=== PATIENT | male | born 1985 | race Caucasian/White ===

== ENCOUNTER 2022-11-28 16:55 | Emergency (ER) | payer OTHER, SELFPAY ==
[2022-11-28 16:59] VITALS: BP 157/88; PULSE 96; RESP 16; TEMP 36.9; O2SAT 98; BMI 29.4
[2022-11-28] MEDS: KETOROLAC 30 MG/ML VIAL 15 MG IM (18:42)
--- NOTE | 2022-11-28 18:59 | ED_ITS ---
HPI - Extremity Problem <Neftali Lozoya PA-C - Last Filed: 11/28/22 19:05> General Chief complaint: Extremity Problem,Nontraumatic Stated complaint: R leg numbing, Severe back pain Time Seen by Provider: 11/28/22 17:11 Source: patient Mode of arrival: Ambulatory History of Present Illness HPI Narrative: This is a 37-year-old male presents to the emergency department complaining of 2 days back pain with radiation down his right lower extremity. He states the pain goes down his right lower extremity and wraps around to the front of the kneecap and down the front of the calf. Denies any significant numbness but d oes describe a sense of tingling. Patient states that he is not tried any medications or physical therapy for this. Denies any urinary or bowel incontinence, weakness, or any other concerning signs or symptoms. Related Data Previous Rx's Medication Instructions Recorded cyclobenzaprine 10 mg tablet 10 mg PO TID PRN muscle spasm #20 11/28/22 tabs Allergies Allergy/AdvReac Type Severity Reaction Status Date / Time No Known Drug Allergies Allergy Verified 11/28/22 16:59 Review of Systems <Neftali Lozoya PA-C - Last Filed: 11/28/22 19:05> Review of Systems Narrative: GENERAL: Denies chills, fatigue, malaise, fever, sweats. HEENT: Denies sinus pain, ear pain, sore throat, difficulty swallowing, dizziness. RESPIRATORY: Denies dyspnea, cough, wheezing, hemoptysis, sputum. CARDIOVASCULAR: Denies chest pain, palpitations, orthopnea, edema, GASTROINTESTINAL: Denies nausea, vomiting, abdominal pain, diarrhea, constipation, melena. : Denies dysuria, frequency, incontinence, hematuria, urinary retention. MUSCULOSKELETAL: Right lower extremity pain SKIN: Denies rash, skin lesions, or other NEUROLOGIC: Denies weakness, headache, numbness, change in speech, confusion, seizures, incoordination. PSYCHIATRIC: No concerning psychosocial issues. 12 point review of systems is negative except for those stated above Patient History <Neftali Lozoya PA-C - Last Filed: 11/28/22 19:05> Medical History Muscle strain of right forearm Social History Smoking Status: Current every day smoker Smoking Status: Current every day smoker Substance Use Type: marijuana Exam <CHERYL Lake Last Filed: 11/28/22 19:05> Narrative Exam Narrative: GENERAL: Well-developed patient, in mild distress. HEAD: Atraumatic. Normocephalic. EYES: Pupils equal round and reactive. Extraocular motions intact. No scleral i cterus. No injection or drainage. ENT: Nose without bleeding, purulent drainage. Throat without erythema, tonsillar hypertrophy or exudate. Airway patent. NECK: Trachea midline. Non tender EXTREMITIES: No edema or joint tenderness. BACK: Nontender without deformity or crepitance. No flank tenderness. NEURO: AOx3. SKIN: No rash or erythema of visible areas Initial Vital Signs Initial Vital Signs: Vital Signs Temperature 98.4 F 11/28/22 16:59 Pulse Rate 96 H 11/28/22 16:59 Respiratory Rate 16 11/28/22 16:59 Blood Pressure 157/88 H 11/28/22 16:59 Pulse Oximetry 98 11/28/22 16:59 Oxygen Delivery Method 11/28/22 16:59 <Chanelle Augustine DO - Last Filed: 11/29/22 08:21> Initial Vital Signs Initial Vital Signs: Vital Signs Temperature 98.4 F 11/28/22 16:59 Pulse Rate 96 H 11/28/22 16:59 Respiratory Rate 16 11/28/22 16:59 Blood Pressure 157/88 H 11/28/22 16:59 Pulse Oximetry 98 11/28/22 16:59 Oxygen Delivery Method 11/28/22 16:59 Course <CHERYL Lake Last Filed: 11/28/22 19:05> Orders Ordered: Discontinued Medications Ketorolac Tromethamine (Ketorolac 30 Mg/Ml Vial) 15 mg IM NOW ONE Stop: 11/28/22 18:21 Last Admin: 11/28/22 18:42 Dose: 15 mg Documented By: CATARINA Vital Signs Vital signs: Vital Signs - 8 hr 11/28/22 16:59 Temperature 98.4 F Pulse Rate 96 H Respiratory Rate 16 Blood Pressure 157/88 H Pulse Oximetry 98 Oxygen Delivery Method Room Air <Chanelle Augustine DO - Last Filed: 11/29/22 08:21> Orders Ordered: Discontinued Medications Ketorolac Tromethamine (Ketorolac 30 Mg/Ml Vial) 15 mg IM NOW ONE Stop: 11/28/22 18:21 Last Admin: 11/28/22 18:42 Dose: 15 mg Documented By: CATARINA Vital Signs Vital signs: Vital Signs - 8 hr 11/28/22 16:59 Temperature 98.4 F Pulse Rate 96 H Respiratory Rate 16 Blood Pressure 157/88 H Pulse Oximetry 98 Oxygen Delivery Method Room Air MDM - Extremity (Nontraumatic) <Neftali Lozoya PA-C - Last Filed: 11/28/22 19:05> MDM Narrative Medical decision making narrative: CC: Right lower extremity pain Complicating co-morbidities: Chronic back pain Data collected from: Previous records Medical records reviewed: Has not been here for similar complaints Differential considered, but not limited to: Sciatica, DVT, muscular strain, fracture Exam documented above, pertinent findings include: Very mild pain with palpation Lab Test results independently reviewed as above. Pertinent findings: None Independently reviewed EKG as above: None obtained Imaging studies independently reviewed: None obtained Scores Used: None MIPS Elements: None Consultations: None Treatments: 15 mg IM Toradol Re-evaluations: Patient reports mild pain relief Discussion: Discussed diagnosis of sciatica and patient was comfortable di scharging home. Diagnosis: Sciatica Disposition: see below, along with detailed discharge instructions that have been reviewed with patient as well as indications for ED re-evaluation and additional outpatient follow up Discharge Plan Departure Patient Disposition: Home Clinical Impression: Sciatica Instructions: DI for Back Pain With Sciatica Activity Restrictions/Additional Instructions: Thank you for coming to the [facility] Emergency Department today. As discussed I suspect you something called sciatica, this is usually due to a compression of the nerve. The compression caused by increasing inflammation. We gave you an anti-inflammatory shot. We will also prescribed muscle relaxants to relax the muscles that this may relieve the pain as well. Please follow up with the primary care provider for long-term management and relief of this suspected sciatica. I hope you feel better soon. Prescriptions: New cyclobenzaprine 10 mg tablet 10 mg PO TID PRN (Reason: muscle spasm) Qty: 20 0RF Referrals: Miscellaneous,Doctor, [Primary Care Provider] - Stand Alone Forms: Patient Portal/API <Chanelle Augustine DO - Last Filed: 11/29/22 08:21> Cosign ED Attending Cosignature Attestation: I was immediately available in the department for consultation. Documentation has been reviewed.
[2022-11-28 19:09] VITALS: BP 140/77; PULSE 73; RESP 16; O2SAT 98
== END 2022-11-28 19:11 | disposition home or self-care (01) ==
PROVIDERS: Emergency Provider Physician Assistant Medical
DX: M54.31 Sciatica, right side (principal)
CPT/HCPCS: 96372; 99283; J1885

== ENCOUNTER → 2022-12-05 09:01 | Outpatient (CLI) | payer OTHER, SELFPAY ==
--- NOTE | 2022-12-05 | DI.RAD.S_ITS ---
PROCEDURE: XR LUMBAR SPINE 2-3V INDICATIONS: BACK PAIN TECHNIQUE: 3 views of the lumbar spine were acquired. COMPARISON: None. FINDINGS: Bones: Five [id number] vertebrae are present. Mild rotation of L1 and L2 and slight rightward curvature at the L2-3 level. Grade 1 retrolisthesis L1 on two. Mild disc height loss and endplate spurring at this level. Bone alignment and disc spacing are otherwise normal. No vertebral body compression fractures. No suspicious bony lesions. Soft tissues: Overlying bowel gas pattern is normal. No suspicious soft tissue calcifications. IMPRESSION: 1. Mild disc, endplate degeneration, and spondylolisthesis at L1-2. 2. Otherwise fairly normal lumbar spine. Dictated by: Yuliana Boland M.D. on 12/05/2022 at 8:44 Approved by: Yuliana Boland M.D. on 12/05/2022 at 8:49
== END ==
PROVIDERS: Referring Provider Chiropractor; Visit Provider Chiropractor
DX: M51.26 Other intervertebral disc displacement, lumbar region (principal); M43.16 Spondylolisthesis, lumbar region
CPT/HCPCS: 72100

== ENCOUNTER → 2025-05-23 07:33 | Outpatient (CLI) | payer OTHER, SELFPAY ==
--- NOTE | 2025-05-23 07:37 | DI.RAD.S_ITS ---
PROCEDURE: XR LUMBAR SPINE 2-3V INDICATIONS: Low back pain, unspecified TECHNIQUE: 3 views of the lumbar spine were acquired. COMPARISON: [facility], CR, XR LUMBAR SPINE 2-3V, 12/05/2022, 9:03. FINDINGS: Bones: 5 [id number] vertebrae are present. Minimal dextroscoliosis has its apex about the L2-L3 interspace. Retrolisthesis of L1 on L2 measures 5 mm. There is otherwise normal bony alignment. Mild multilevel anterior osteophytosis. No vertebral body compression fractures. No suspicious bony lesions. Soft tissues: Overlying bowel gas pattern is normal. No suspicious soft tissue calcifications. IMPRESSION: Mild degenerative change of the lumbar spine including retrolisthesis of L1 on L2 without evidence of acute bony abnormality. Dictated by: Jaime Fuentes M.D. on 05/23/2025 at 23:13 Approved by: Jaime Fuentes M.D. on 05/23/2025 at 23:23
== END ==
LOC: RAD 07:35
PROVIDERS: PCP Family Medicine; Referring Provider Family Medicine; Visit Provider Family Medicine
DX: M43.16 Spondylolisthesis, lumbar region (principal); M54.50 Low back pain, unspecified
CPT/HCPCS: 72100

== ENCOUNTER → 2025-05-24 07:36 | Outpatient (CLI) | payer OTHER, SELFPAY ==
--- NOTE | 2025-05-24 07:39 | DI.RAD.S_ITS ---
PROCEDURE: XR KNEE RT 3V INDICATIONS: CHRONIC RT KNEE PAIN TECHNIQUE: 3 views of the knee were acquired. COMPARISON: None. FINDINGS: Bones: There are no osseous abnormalities. Joints: The tibialfemoral and patellofemoral joints are normal in width and alignment without arthritic change. . There are no effusions. Soft tissues: Normal IMPRESSION: Normal knee. Dictated by: Hernan Silverman M.D. on 05/25/2025 at 11:45 Approved by: Hernan Silverman M.D. on 05/25/2025 at 11:45
== END ==
PROVIDERS: PCP Family Medicine; Referring Provider Family Medicine; Visit Provider Family Medicine
DX: M25.561 Pain in right knee (principal); G89.29 Other chronic pain
CPT/HCPCS: 73562

== ENCOUNTER → 2025-07-30 14:51 | Outpatient (CLI) | payer OTHER, SELFPAY | PROVIDERS: PCP Family Medicine; Referring Provider Family Medicine; Visit Provider Family Medicine | DX: R19.7 Diarrhea, unspecified (principal) | CPT/HCPCS: 87329 ==

== ENCOUNTER 2025-09-19 08:15 | Outpatient (RCR) | payer OTHER, SELFPAY ==
--- NOTE | 2025-08-15 14:31 | PT.OPPOC ---
Physical, Occupational & Speech Therapy At [facility] Current Diagnoses Other chronic pain (08/15/25) Pain in right knee (08/15/25) Low back pain, unspecified (08/15/25) Visit Care Team Role Provider Type Shirley Moran MD Attending Provider Non-Staff Family Provider Primary Care Provider Referring Provider Specialty: Family Practice Address: [address] [place] [address], [facility] Email: Plan Of Care PT OP: Lower Back/Lower Extremity Start: 08/15/25 13:01 Freq: Status: Active Protocol: Document 08/15/25 13:02 HUY (Rec: 08/15/25 14:30 HUY [id number]) Out-Patient Physical Therapy Visit Information Visit Information Visit Type Initial Evaluation Visit Start Time 13:00 Visit Stop Time 13:45 Visit Number 1 Number of STOCK LETTERER Visits 0 Progress Note Due 09/14/25 OP-PT Subjective Patient Comments Patient Comments History of current diagnosis: Patient reports low back pain that started over two years ago. He reports he went to PT for about a year ago and had some improvement in his low back pain but eventually the pain came back. 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 Physical activities/ hobbies: Working on cars. Was walking 2 miles per day then fell off. Pain location: L low back, R medial back Pain description: stiff, burning when bending forward, no numbness or tingling Pain 0-10/10 (current): 2/10 Pain 0-10/10 (worst): 5/10 Pain 0-10/10 (best): 0/10 Aggravating: Bending over, working bent over, yard work Alleviating: Low back massage Function prior to injury: Independent with all ADLs Function current: Independent with all ADLs - limited with bending down, lifting at work, yard work Patient goals: Improve pain levels, and ROM Patient Questionnaires Oswestry Low Back Index Oswestry Score 38 Oswestry Impairment 20 to 39% Impaired (Score 20-39) Palpation Assessment Location Thoracic/ lumbar region Palpation Findings Soft Tissue Tightness,Tenderness Palpation Details TTP R thoracic paraspinals Lumbar Spine Range of Motion Lumbar Spine Active Comments Movement screen: Flexion: WFL Extension: WFL R rotation: WFL, symptom reproduction L rotation: WFL R side bending: WFL, symptom reproduction L side bending: WFL, symptom reproduction Squat: WFL Hinge: Increased lumbar flexion, reduced posterior hip translation, symptom reproduction Hip Goniometric Range of Motion Hip Measured in Degrees Right Hip ROM WFL Yes Flexion w/Knee 130 Flexed Internal Rotation 30 External Rotation 50 Comments Passive range Left Hip ROM WFL Yes Flexion w/Knee 130 Flexed Internal Rotation 30 External Rotation 50 Comments Passive range Physical Therapy Assessment Goals Three Impairment Pain intensity Short Term Goal (STG Patient will report a reduction in pain at worst to a 3 ) /10 in order to better function at work and with yard work. STG Duration 3 weeks Care Home Goal (LTG) Patient will report a reduction in pain at worst to a 1 /10 in order to better function at work and with yard work. LTG Duration 6 weeks Two Impairment General function/ disability Short Term Goal (STG Patient will demonstrate an reduction in modified ) Oswestry disability score to 32 in order to show an increase in self-perceived function. STG Duration 3 weeks Care Home Goal (LTG) Patient will demonstrate an reduction in modified Oswestry disability score to 26 in order to show an increase in self-perceived function. LTG Duration 6 weeks One Impairment Movement coordination/ lumbar load tolerance Short Term Goal (STG Patient will hinge to full depth with proper mechanics ) and no increase in pain levels. STG Duration 3 weeks Care Home Goal (LTG) Patient will hinge with proper mechanics, no increase in pain levels with 30# in order to better function with lifting at work. LTG Duration 6 weeks Assessment Summary Assessment Patient presenting to PT with complaints of chronic mid -low back pain. Functional deficits include bending down, lifting, and yard work. Objective investigation revealed pain reproduction with lumbar R side bending and rotation, movement coordination deficits with hip hinge (see movement screen notes above), and tenderness to palpation of R paraspinals in thoracic region. Presentation is consistent with chronic non-movement specific mechanical low back pain and patient will benefit from PT to address deficits and return to prior level of function. Physical Therapy Plan Frequency and Duration Frequency of 2x/Week Treatment Duration of 12 treatment (weeks) Plan of Care Start 08/15/25 Date Plan of Care End 11/13/25 Date Next Visit Focus/Plan Next Note Type Treatment Note Next Visit Plan Initiate treatment with focus on lumbar mobility, progressive strengthening, and movement coordination of lumbo-pelvic region particularly with bending down. Plan of Care Dates Plan of Care Start Date 08/15/25 Plan of Care End Date 11/13/25 Electronically Signed by: Yulissa Doan, PT 08/15/25 1017 If you are in agreement with this Plan of Care, please return a signed and dated copy. I have reviewed this Plan of Care and certify that the skilled therapy services above are required to meet the patient?s needs. Physician Signature Date Printed Name and Credentials Clinical Instructor Signature Printed Name and Credentials
--- NOTE | 2025-08-17 15:30 | PT.OTN ---
Current Diagnoses Other chronic pain (08/17/25) Pain in right knee (08/17/25) Low back pain, unspecified (08/17/25) Physical Therapy Treatment Note PT OP: Lower Back/Lower Extremity Start: 08/15/25 13:01 Freq: Status: Active Protocol: Document 08/17/25 13:47 JZ (Rec: 08/17/25 15:30 JZ [id number]) Out-Patient Physical Therapy Visit Information Visit Information Visit Type Treatment Note Visit Start Time 13:45 Visit Stop Time 14:30 Visit Number 2 Number of NET PROGRAMMER ANALYST Visits 0 Progress Note Due 09/14/25 OP-PT Subjective Patient Comments Patient Comments Patient reports his back has been feeling good. He did his exercises at home yesterday with no pain. Therapeutic Exercises Prone Exercises Thread the needle Prone Exercise Name With upward thoracic rotation Reps/Minutes x20 each side Cat cow Reps/Minutes x30 Comments cues for full flexion ROM Sitting Exercises Seated hip hinge Resistance 20# Reps/Minutes 3x15 Standing Exercises Rotational chop Resistance 20# Reps/Minutes 3x10 each side Standing hip hinge Resistance 20# Reps/Minutes 3x10 Comments Chair cue against posterior knees for hip hinge Physical Therapy Assessment Goals Three Impairment Pain intensity Short Term Goal (STG Patient will report a reduction in pain at worst to a 3 ) /10 in order to better function at work and with yard work. STG Duration 3 weeks [facility] Goal (LTG) Patient will report a reduction in pain at worst to a 1 /10 in order to better function at work and with yard work. LTG Duration 6 weeks Two Impairment General function/ disability Short Term Goal (STG Patient will demonstrate an reduction in modified ) Oswestry disability score to 32 in order to show an increase in self-perceived function. STG Duration 3 weeks [facility] Goal (LTG) Patient will demonstrate an reduction in modified Oswestry disability score to 26 in order to show an increase in self-perceived function. LTG Duration 6 weeks One Impairment Movement coordination/ lumbar load tolerance Short Term Goal (STG Patient will hinge to full depth with proper mechanics ) and no increase in pain levels. STG Duration 3 weeks Hand Model Goal (LTG) Patient will hinge with proper mechanics, no increase in pain levels with 30# in order to better function with lifting at work. LTG Duration 6 weeks Assessment Summary Assessment Treatment focused on initiating spine strengthening and mobility. Patient tolerated treatment well with no increases in pain levels and demonstrated improvement in lumbo-pelvic mechanics with hip hinge. Plan next session to follow up on home exercises and continue with plan of care. Physical Therapy Plan Frequency and Duration Frequency of 2x/Week Treatment Duration of 12 treatment (weeks) Plan of Care Start 08/15/25 Date Plan of Care End 11/13/25 Date Next Visit Focus/Plan Next Note Type Treatment Note Next Visit Plan Continue with plan of care focused on lumbar mobility, lumbo-pelvic neuromuscular control, and strengthening. Add hip thrusters, side hip bridge.
--- NOTE | 2025-08-22 14:16 | PT.OTN ---
Current Diagnoses Other chronic pain (08/22/25) Pain in right knee (08/22/25) Low back pain, unspecified (08/22/25) Physical Therapy Treatment Note PT OP: Lower Back/Lower Extremity Start: 08/15/25 13:01 Freq: Status: Active Protocol: Document 08/22/25 13:06 HUY (Rec: 08/22/25 14:15 HUY [id number]) Out-Patient Physical Therapy Visit Information Visit Information Visit Type Treatment Note Visit Start Time 13:05 Visit Stop Time 14:50 Visit Number 3 Number of ADMINISTRATIVE OFFICER Visits 0 Progress Note Due 09/14/25 OP-PT Subjective Patient Comments Patient Comments Patient reports his back has been a little sore but overall is doing well. Therapeutic Exercises Prone Exercises Thread the needle Prone Exercise Name With upward thoracic rotation Reps/Minutes x20 each side Cat cow Reps/Minutes x30 Comments cues for full flexion ROM Sitting Exercises Seated hip hinge Resistance 20# Reps/Minutes 3x15 Standing Exercises SLDL Resistance 10# Reps/Minutes 2x10 each side Rotational chop Resistance 20# Reps/Minutes 3x10 each side Standing hip hinge Resistance 20# Reps/Minutes 3x10 Comments Chair cue against posterior knees for hip hinge Physical Therapy Assessment Goals Three Impairment Pain intensity Short Term Goal (STG Patient will report a reduction in pain at worst to a 3 ) /10 in order to better function at work and with yard work. STG Duration 3 weeks Armature Winder Repair Helper Goal (LTG) Patient will report a reduction in pain at worst to a 1 /10 in order to better function at work and with yard work. LTG Duration 6 weeks Two Impairment General function/ disability Short Term Goal (STG Patient will demonstrate an reduction in modified ) Oswestry disability score to 32 in order to show an increase in self-perceived function. STG Duration 3 weeks Armature Winder Repair Helper Goal (LTG) Patient will demonstrate an reduction in modified Oswestry disability score to 26 in order to show an increase in self-perceived function. LTG Duration 6 weeks One Impairment Movement coordination/ lumbar load tolerance Short Term Goal (STG Patient will hinge to full depth with proper mechanics ) and no increase in pain levels. STG Duration 3 weeks Armature Winder Repair Helper Goal (LTG) Patient will hinge with proper mechanics, no increase in pain levels with 30# in order to better function with lifting at work. LTG Duration 6 weeks Assessment Summary Assessment Treatment focused on progressing strengthening exercises. Patient tolerated treatment well with no increases in pain levels. Plan next session to follow up on home exercises and add hip thrusters and side hip bridges to program. Physical Therapy Plan Frequency and Duration Frequency of 2x/Week Treatment Duration of 12 treatment (weeks) Plan of Care Start 08/15/25 Date Plan of Care End 11/13/25 Date Next Visit Focus/Plan Next Note Type Treatment Note Next Visit Plan Continue with plan of care focused on lumbar mobility, lumbo-pelvic neuromuscular control, and strengthening. Add hip thrusters, side hip bridge.
--- NOTE | 2025-08-24 14:15 | PT.OTN ---
Current Diagnoses Other chronic pain (08/24/25) Pain in right knee (08/24/25) Low back pain, unspecified (08/24/25) Physical Therapy Treatment Note PT OP: Lower Back/Lower Extremity Start: 08/15/25 13:01 Freq: Status: Active Protocol: Document 08/24/25 13:04 HUY (Rec: 08/24/25 14:15 HUY [id number]) Out-Patient Physical Therapy Visit Information Visit Information Visit Type Treatment Note Visit Start Time 13:05 Visit Stop Time 14:50 Visit Number 4 Number of WIND TURBINE BLADE REPAIR TECHNICIAN Visits 0 Progress Note Due 09/14/25 OP-PT Subjective Patient Comments Patient Comments Patient reports he had a good deal of muscle soreness after last session. Therapeutic Exercises Prone Exercises Thread the needle Prone Exercise Name With upward thoracic rotation Reps/Minutes x20 each side Cat cow Reps/Minutes x20 each direction Comments cues for full flexion ROM Sidelying Exercises Side hip bridge Reps/Minutes x10 each side Sitting Exercises Seated piriformis/ glute stretch Reps/Minutes 3x30 each side Seated hip hinge Resistance 20# Standing Exercises SLDL Reps/Minutes 2x10 Rotational chop Resistance 20# Reps/Minutes 3x10 each side Standing hip hinge Resistance 20# Reps/Minutes 3x10 Comments Chair cue against posterior knees for hip hinge Physical Therapy Assessment Goals Three Impairment Pain intensity Short Term Goal (STG Patient will report a reduction in pain at worst to a 3 ) /10 in order to better function at work and with yard work. STG Duration 3 weeks Carpet Tile Layer Goal (LTG) Patient will report a reduction in pain at worst to a 1 /10 in order to better function at work and with yard work. LTG Duration 6 weeks Two Impairment General function/ disability Short Term Goal (STG Patient will demonstrate an reduction in modified ) Oswestry disability score to 32 in order to show an increase in self-perceived function. STG Duration 3 weeks [facility] Goal (LTG) Patient will demonstrate an reduction in modified Oswestry disability score to 26 in order to show an increase in self-perceived function. LTG Duration 6 weeks One Impairment Movement coordination/ lumbar load tolerance Short Term Goal (STG Patient will hinge to full depth with proper mechanics ) and no increase in pain levels. STG Duration 3 weeks Carpet Tile Layer Goal (LTG) Patient will hinge with proper mechanics, no increase in pain levels with 30# in order to better function with lifting at work. LTG Duration 6 weeks Assessment Summary Assessment Treatment focused on continued posterior chain strengthening and mobility. Patient tolerated treatment well with no increases in pain levels. Plan next session to follow up on home exercises and continue with plan of care. Physical Therapy Plan Frequency and Duration Frequency of 2x/Week Treatment Duration of 12 treatment (weeks) Plan of Care Start 08/15/25 Date Plan of Care End 11/13/25 Date Next Visit Focus/Plan Next Note Type Treatment Note Next Visit Plan Continue with plan of care focused on lumbar mobility, lumbo-pelvic neuromuscular control, and strengthening. Add hip thrusters, side hip bridge.
--- NOTE | 2025-08-29 09:44 | PT.OTN ---
Current Diagnoses Other chronic pain (08/29/25) Pain in right knee (08/29/25) Low back pain, unspecified (08/29/25) Physical Therapy Treatment Note PT OP: Lower Back/Lower Extremity Start: 08/15/25 13:01 Freq: Status: Active Protocol: Document 08/29/25 09:06 SP (Rec: 08/29/25 10:03 SP [id number]) Out-Patient Physical Therapy Visit Information Visit Information Visit Type Treatment Note Visit Start Time 09:06 Visit Stop Time 09:44 Visit Number 5 Number of SHANK TURNER Visits 1 Progress Note Due 09/14/25 OP-PT Subjective Patient Comments Patient Comments Pt reports has been busy with family in town, not as compliant with HEP. 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 Therapeutic Exercises Sitting Exercises reclined oblique rotation med bal Sitting Exercise added to HEP with HO Name Resistance 5.5 lb then 10lb Reps/Minutes 10 reps x2 Comments cued spinal alignment, core engaged, painfree range Standing Exercises Standing SB weighted Standing Exercise added to HEP with HO Name Side bilateral Resistance 10# DB Reps/Minutes 10 x2 each side HS stretch Standing Exercise 1. bottoms up vs 2. hip hinge leg propped up Name Side bilateral Reps/Minutes 20-3- sec Comments cued straight back hip hinge with TA engaged needed support back SLDL Standing Exercise SL RDL Name Side bilateral Resistance 10# held BUEs in front Reps/Minutes 3x10 alternating sets Comments cued 1 leg lift posterior level shlds with UEs trunk flexion, good TA- nopn Rotational chop Side bilateral Resistance 20# xcable last tx, TB #5 dark green for home carryover Reps/Minutes 15 x1 set, 10 x2 sets each side Comments cues slight knee/hip flexion during rotation to outside thigh Standing hip hinge Resistance 20# Equipment Used body solid bench behind knees Reps/Minutes 3x10 Comments CUes fror TA, back alignment hip hinge Therapeutic Activity 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 Verbalized understanding. ALso seated under car and looking up maybe find a supported seat like fabric stadium chair that can give him support sitting during activity accomplishing and dong few HEP after to support mobility and lessen soreness. Physical Therapy Assessment Goals Three Impairment Pain intensity Short Term Goal (STG Patient will report a reduction in pain at worst to a 3 ) /10 in order to better function at work and with yard work. STG Duration 3 weeks Usp Goal (LTG) Patient will report a reduction in pain at worst to a 1 /10 in order to better function at work and with yard work. LTG Duration 6 weeks Two Impairment General function/ disability Short Term Goal (STG Patient will demonstrate an reduction in modified ) Oswestry disability score to 32 in order to show an increase in self-perceived function. STG Duration 3 weeks Satellite Manager Goal (LTG) Patient will demonstrate an reduction in modified Oswestry disability score to 26 in order to show an increase in self-perceived function. LTG Duration 6 weeks One Impairment Movement coordination/ lumbar load tolerance Short Term Goal (STG Patient will hinge to full depth with proper mechanics ) and no increase in pain levels. STG Duration 3 weeks Satellite Manager Goal (LTG) Patient will hinge with proper mechanics, no increase in pain levels with 30# in order to better function with lifting at work. LTG Duration 6 weeks Assessment Summary Assessment Pt improved core and LE strengthening during ther ex today. Incorporated reclined seated and standing SB resisted strengthening then complimenting HS stretching in standing to support flexibility to low back. 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 PRovided high level #6 band to incorporate in HEP chops carry over home vs plates in PT. Pt reports no pain and good core/back feeling. 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 recheck added core rotations with med ball and standing SB. POC: Continue with plan of care focused on lumbar mobility, lumbo-pelvic neuromuscular control, and strengthening. Add hip thrusters, side hip bridge.
--- NOTE | 2025-09-06 10:19 | PT.OTN ---
Current Diagnoses Other chronic pain (09/06/25) Pain in right knee (09/06/25) Low back pain, unspecified (09/06/25) Physical Therapy Treatment Note PT OP: Lower Back/Lower Extremity Start: 08/15/25 13:01 Freq: Status: Active Protocol: Document 09/06/25 08:15 PD (Rec: 09/06/25 09:03 PD [id number]) Out-Patient Physical Therapy Visit Information Visit Information Visit Type Treatment Note Visit Note PAULA Mina led tx session with direct supervision from GASOLINE FINISHER Radha and pt permission Visit Start Time 08:15 Visit Stop Time 08:58 Visit Number 6 Number of GASOLINE FINISHER Visits 2 Progress Note Due 09/14/25 OP-PT Subjective Patient Comments Patient Comments Pt is a bit sore when he does the assigned stretching, he felt okay after the 08/29 session. 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 He has used a stool most of this week during work, this is how he has been working. Therapeutic Exercises Prone Exercises Thread the needle Prone Exercise Name QP with 3#DB in hand, thread through then up and out to side Side bilateral Resistance 3# DB Equipment Used Cues and demonstration for slow thread to full extension out to side Reps/Minutes 2 x 5 each side Comments Add to HEP, declined new HO, will add 2# DB at home Cat cow Prone Exercise Name Cues for neutral spine set to start using dowel as tactile cue Reps/Minutes x20 each direction Comments cues for full flexion ROM Sitting Exercises Seated rotational pallof Sitting Exercise On 65 cm bahamian ball, 10# DB in hands, hand together, Name rotate to side, extend Side bilateral Resistance 10# DB Equipment Used 65 cm bahamian ball Reps/Minutes x 10 each side, alternating Comments Cues for slight recline for core triggers Standing Exercises Rotational chop Standing Exercise Start with 2 L3 bands, progressed to 2 L5 bands Name Side bilateral Resistance TB #5 dark green for home carryover Reps/Minutes 1 x 20 green, 1 x 20 purple sets each side Comments cues slight knee/hip flexion during rotation to outside thigh Therapeutic Activity 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 Educated on wt close to body, step turns, staging wt movement along car to avoid reaching with wt, move wt in stages along side of car as needed, or use hip hinge RDL technique if need to reach out away from body. Self-Care/Home Management Treatment Activities Self-Care/Home Educated pt on self mobilization of low back/PS with Management racquet ball in standing against wall during work day Activities or at home. Educated pt during ther act on proper lifting technique, staged movement of heavy objects to avoid having to reach out away from body, using hip hinge/RDL technique when can't stage object to keep it close to body. Educated pt on trying to do small body movements even when maintaining a position for a long time over the engine, try PPT, small hip hiking, small shoulder rotations to get some movement in even when having to maintain an overall difficult posture. Continue to encourage frequent movement as work allows. Physical Therapy Assessment Goals Three Impairment Pain intensity Short Term Goal (STG Patient will report a reduction in pain at worst to a 3 ) /10 in order to better function at work and with yard work. STG Duration 3 weeks Mcc Goal (LTG) Patient will report a reduction in pain at worst to a 1 /10 in order to better function at work and with yard work. LTG Duration 6 weeks Two Impairment General function/ disability Short Term Goal (STG Patient will demonstrate an reduction in modified ) Oswestry disability score to 32 in order to show an increase in self-perceived function. STG Duration 3 weeks Mcc Goal (LTG) Patient will demonstrate an reduction in modified Oswestry disability score to 26 in order to show an increase in self-perceived function. LTG Duration 6 weeks One Impairment Movement coordination/ lumbar load tolerance Short Term Goal (STG Patient will hinge to full depth with proper mechanics ) and no increase in pain levels. STG Duration 3 weeks Mlt Goal (LTG) Patient will hinge with proper mechanics, no increase in pain levels with 30# in order to better function with lifting at work. LTG Duration 6 weeks Assessment Summary Assessment Pt reports he feels good at end of session. Skilled therapy focused on functional activities for work tolerance, lifting body mechanics, progressing rotational movements with resistance, self mobilization with racquet ball. He will add horizontal extension with 2# DB to HEP thread the needle and continue to try to move more frequently at work. 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 recheck added core rotations with med ball and standing SB. POC: Continue with plan of care focused on lumbar mobility, lumbo-pelvic neuromuscular control, and strengthening. Add hip thrusters, side hip bridge.
--- NOTE | 2025-09-19 10:21 | PT.OPDS ---
Current Diagnoses Other chronic pain (09/19/25) Pain in right knee (09/19/25) Low back pain, unspecified (09/19/25) Visit Care Team Role Provider Type Shirley Moran MD Attending Provider Non-Staff Family Provider Primary Care Provider Referring Provider Specialty: Family Practice Address: [address] [place] [address], [id number] Email: Visit Number Visit Number 7 Discharge Summary PT OP: Lower Back/Lower Extremity Start: 08/15/25 13:01 Freq: Status: Active Protocol: Document 09/19/25 08:17 HUY (Rec: 09/19/25 10:15 HUY [id number]) Out-Patient Physical Therapy Visit Information Visit Information Visit Type Discharge Summary Visit Start Time 08:20 Visit Stop Time 09:00 Visit Number 7 Number of AIR PURIFIER SERVICER Visits 2 Progress Note Due 10/19/25 OP-PT Subjective Patient Comments Patient Comments Patient reports he feels his back is improving. He reports the his stretches are helping. He reports his GROC is 75%. He notes improvement in his symptoms and tolerance to working as much. He reports the highest the pain has been over the last week is about a 4-5/10. Patient Questionnaires Oswestry Low Back Index Oswestry Score 1 Oswestry Impairment 1 to 19% Impaired (Score 1-19) Therapeutic Exercises Prone Exercises Thread the needle Prone Exercise Name QP with 3#DB in hand, thread through then up and out to side Side bilateral Resistance 3# DB Equipment Used Cues and demonstration for slow thread to full extension out to side Reps/Minutes 2 x 5 each side Comments Add to HEP, declined new HO, will add 2# DB at home Cat cow Prone Exercise Name Cues for neutral spine set to start using dowel as tactile cue Reps/Minutes x20 each direction Comments cues for full flexion ROM Standing Exercises SLDL Standing Exercise SL RDL Name Side bilateral Resistance 10# held BUEs in front Reps/Minutes 3x10 alternating sets Comments cued 1 leg lift posterior level shlds with UEs trunk flexion, good TA- nopn Rotational chop Side bilateral Resistance cable column Reps/Minutes 20# Standing hip hinge Resistance 20# Equipment Used body solid bench behind knees Reps/Minutes 3x10 Physical Therapy Assessment Goals Three Impairment Pain intensity Short Term Goal (STG Patient will report a reduction in pain at worst to a 3 ) /10 in order to better function at work and with yard work. In progress - 09/19/2025 STG Duration 3 weeks Retirement Goal (LTG) Patient will report a reduction in pain at worst to a 1 /10 in order to better function at work and with yard work. In progress - 09/19/2025 LTG Duration 6 weeks Two Impairment General function/ disability Short Term Goal (STG Patient will demonstrate an reduction in modified ) Oswestry disability score to 32 in order to show an increase in self-perceived function. Met - 09/19/2025 STG Duration 3 weeks Retirement Goal (LTG) Patient will demonstrate an reduction in modified Oswestry disability score to 26 in order to show an increase in self-perceived function. Met - 09/19/2025 LTG Duration 6 weeks One Impairment Movement coordination/ lumbar load tolerance Short Term Goal (STG Patient will hinge to full depth with proper mechanics ) and no increase in pain levels. Met - 09/19/2025 STG Duration 3 weeks Border Patrol Agent Goal (LTG) Patient will hinge with proper mechanics, no increase in pain levels with 30# in order to better function with lifting at work. - 09/19/2025 LTG Duration 6 weeks Assessment Summary Assessment Patient presenting to PT after 6 visits for low back pain. Patient has made improvement with pain intensity and frequency. Further investigation revealed improvement in general function (see subjective: GROC), and disability (see Neda). Because of progress noted above, and patient confidence continuing progress independently, today will be his last formal PT session . Physical Therapy Plan Frequency and Duration Frequency of 2x/Week Treatment Duration of 12 treatment (weeks) Plan of Care Start 08/15/25 Date Plan of Care End 11/13/25 Date Next Visit Focus/Plan Next Note Type Treatment Note Next Visit Plan N/A - discharge plan of care
== END 2025-09-19 13:37 | disposition home or self-care (01) ==
LOC: PHYS 08:15
PROVIDERS: Family Provider Family Medicine; PCP Family Medicine; Referring Provider Family Medicine; Visit Provider Family Medicine
DX: M25.561 Pain in right knee (principal); M54.50 Low back pain, unspecified; G89.29 Other chronic pain
CPT/HCPCS: 97110; 97161; 97530